=== PATIENT | female | born 1960 | race Caucasian/White ===

== ENCOUNTER → 2016-12-10 | Outpatient (CLI) | payer MEDICARE ==
[~2016-12-10] MED LIST: HYDR-3240; HYDR2TAB13 PO; IBUP800T PO; OXYC-229 PO
[2016-12-10 11:19] LABS: ASPARTATE AMINO TRANSFERASE 19 U/L (15-37); BLOOD UREA NITROGEN 10 mg/dL (7-18)
== END | disposition home or self-care (01) ==
LOC: LAB 10:57
PROVIDERS: ATTEND Physician Assistant
DX: E78.6 Lipoprotein deficiency (principal); F51.05 Insomnia due to other mental disorder; F99 Mental disorder, not otherwise specified
CPT/HCPCS: 36415; 80053; 80061; 84439; 84443; 85025

== ENCOUNTER 2017-04-17 14:03 | Emergency (ER) | payer MEDICARE ==
[~2017-04-17] VITALS: Ht 165.1 cm; Wt 76.5 kg
[~2017-04-17 14:03] MED LIST changes: -HYDR2TAB13 PO; +HYDR2TAB29 PO; +IBUP-1223 PO; -IBUP800T PO; -OXYC-229 PO; +OXYC-307 PO
[2017-04-17] MEDS ORDERED: SODIUM CHLORIDE 0.9% 1,000ML IVBOLUS ONE (15:30)
[2017-04-17] MEDS ORDERED: MORPHINE SULFATE 4 MG/ML, 1ML IVPush PRN (15:30)
[2017-04-17] MEDS ORDERED: ONDANSETRON 2MG/ML, 2ML IVP ONE (15:30)
[2017-04-17] MEDS ORDERED: SODIUM CHLORIDE FLUSH 10ML SYR IVF ONE (15:30)
[2017-04-17] MEDS ORDERED: ONDANSETRON 2MG/ML, 2ML ONE (15:34)
[2017-04-17] MEDS ORDERED: MORPHINE SULFATE 4 MG/ML, 1ML ONE (15:34)
[2017-04-17 16:02] LABS: HEMATOCRIT 43.3 % (34.6-47.8); HEMOGLOBIN 14.6 g/dL (11.7-16.4); WHITE BLOOD COUNT 6.1 x10^3/uL (3.4-10)
[2017-04-17 16:13] LABS: BLOOD UREA NITROGEN 16 mg/dL (7-18)
[2017-04-17 16:18] LABS: IS PT STATUS REG ER OR PRE ER? YES
[2017-04-17] MEDS ORDERED: OMNIPAQUE 350 MG/ML, 100ML BOTTLE ONE (17:19)
[2017-04-17 18:13] VITALS: BP 136/68
== END 2017-04-17 18:14 | disposition home or self-care (01) ==
LOC: ED 15:01
DX: R07.89 Other chest pain (principal); J01.00 Acute maxillary sinusitis, unspecified; J01.10 Acute frontal sinusitis, unspecified; K08.89 Other specified disorders of teeth and supporting structures; K21.9 Gastro-esophageal reflux disease without esophagitis; Z90.710 Acquired absence of both cervix and uterus; Z90.49 Acquired absence of other specified parts of digestive tract; Z90.721 Acquired absence of ovaries, unilateral
CPT/HCPCS: 36415; 71010; 71275; 80048; 80329; 82040; 83880; 84484; 85025; 93005; 96361; 96374; 96375; 99285; J2405; J7030; Q9967; G0480

== ENCOUNTER 2017-09-01 10:54 | Emergency (ER) | payer MEDICARE ==
[~2017-09-01] VITALS: Ht 165.1 cm; Wt 73.1 kg
[2017-09-01] MEDS ORDERED: SODIUM CHLORIDE 0.9% 1,000ML IVBOLUS ONE (12:00)
[2017-09-01] MEDS ORDERED: LORazepam 1MG TABLET PO ONE (12:00)
[2017-09-01 12:08] LABS: BASOPHILS # (AUTO) 0.02 x10^3/uL (0-0.1); BASOPHILS % (AUTO) 0 % (0-1); EOSINOPHILS # (AUTO) 0.04 x10^3/uL (0-0.4); EOSINOPHILS % (AUTO) 1 % (1-7); LYMPHOCYTES % (AUTO) 36 % (22-44); MD NO; MEAN CORPUSCULAR HEMOGLOBIN 30.7 pg (27.0-34.8); MEAN CORPUSCULAR HGB CONC 34.2 g/dL (32.4-35.8); MEAN CORPUSCULAR VOLUME 89.7 fL (80-100); MEAN PLATELET VOLUME 8.7 fL (7.4-10.4); MONOCYTES % (AUTO) 10 % (2-9); NEUTROPHILS # (AUTO) 2.69 x10^3/uL (1.8-6.8); NEUTROPHILS % (AUTO) 53 % (42-75); PLATELET COUNT 203 x10^3/uL (130-400); RED BLOOD COUNT 5.39 x10^6/uL (3.82-5.3); RED CELL DISTRIBUTION WIDTH 13.8 % (9.6-15.2)
[2017-09-01] MEDS ORDERED: LORazepam 2 MG/ML, 1ML ONE (12:08)
[2017-09-01] MEDS ORDERED: LORazepam 1MG TABLET ONE (12:13)
[2017-09-01 12:21] LABS: ALBUMIN 3.7 g/dL (3.4-5.0); ANION GAP 11 mmol/L (5-15); CALCIUM 9.5 mg/dL (8.5-10.1); CHLORIDE 110 mmol/L (98-107); CREATININE 0.92 mg/dL (0.55-1.02)
[2017-09-01 13:01] VITALS: BP 139/89
== END 2017-09-01 13:03 | disposition home or self-care (01) ==
LOC: ED 12:19
DX: A08.4 Viral intestinal infection, unspecified (principal); K21.9 Gastro-esophageal reflux disease without esophagitis
CPT/HCPCS: 36415; 71046; 80048; 82040; 85025; 96360; 99285; J7030

== ENCOUNTER → 2017-09-13 | Outpatient (CLI) | payer MEDICARE ==
[2017-09-13 10:11] LABS: BASOPHILS # (AUTO) 0.04 x10^3/uL (0-0.1); BASOPHILS % (AUTO) 1 % (0-1); EOSINOPHILS # (AUTO) 0.13 x10^3/uL (0-0.4); EOSINOPHILS % (AUTO) 2 % (1-7); LYMPHOCYTES # (AUTO) 2.25 x10^3/uL (1-3.4); LYMPHOCYTES % (AUTO) 36 % (22-44); MD NO; MEAN CORPUSCULAR HEMOGLOBIN 30.7 pg (27.0-34.8); MEAN CORPUSCULAR HGB CONC 34.1 g/dL (32.4-35.8); MEAN CORPUSCULAR VOLUME 90.1 fL (80-100); MEAN PLATELET VOLUME 8.8 fL (7.4-10.4); MONOCYTES # (AUTO) 0.62 x10^3/uL (0.2-0.8); MONOCYTES % (AUTO) 10 % (2-9); NEUTROPHILS # (AUTO) 3.27 x10^3/uL (1.8-6.8); NEUTROPHILS % (AUTO) 52 % (42-75); PLATELET COUNT 224 x10^3/uL (130-400); RED BLOOD COUNT 4.71 x10^6/uL (3.82-5.3); RED CELL DISTRIBUTION WIDTH 13.9 % (9.6-15.2)
[2017-09-13 10:21] LABS: ALANINE AMINOTRANSFERASE 24 U/L (12-78); ALBUMIN 3.8 g/dL (3.4-5.0); ANION GAP 12 mmol/L (5-15); CALCIUM 8.8 mg/dL (8.5-10.1); CHLORIDE 112 mmol/L (98-107); CHOLESTEROL, TOTAL 210 mg/dL (140-239); CREATININE 0.78 mg/dL (0.55-1.02)
[2017-09-13 10:37] LABS: ALKALINE PHOSPHATASE 81 U/L (45-117); BILIRUBIN,TOTAL 0.5 mg/dL (0.2-1.0); TOTAL PROTEIN 7.7 g/dL (6.4-8.2); TRIGLYCERIDES 149 mg/dL (50-200)
[2017-09-13 10:38] LABS: CHOL/HDL RATIO 4.4; HDL CHOL % 23 % (28-40); HDL CHOLESTEROL (DIRECT) 48 mg/dL (40-60); LDL CHOLESTEROL,CALCULATED 132 mg/dL (54-169); LDL/HDL RATIO 2.8 (0.5-3.0); VLDL CHOLESTEROL 30 mg/dL (0-25)
== END | disposition home or self-care (01) ==
LOC: LAB 09:52
PROVIDERS: ATTEND Physician Assistant
DX: Z13.220 Encounter for screening for lipoid disorders (principal); I10 Essential (primary) hypertension; F41.9 Anxiety disorder, unspecified
CPT/HCPCS: 36415; 80053; 80061; 82043; 82570; 84443; 85025

== ENCOUNTER 2017-10-13 19:58 | Emergency (ER) | payer MEDICARE ==
[~2017-10-13] VITALS: Ht 165.1 cm; Wt 74.0 kg
[2017-10-13] MEDS ORDERED: PROPOFOL 10 MG/ML, 20ML ONE (20:21)
[2017-10-13] MEDS ORDERED: PROPOFOL 10 MG/ML, 20ML IVPush ONE (20:30)
[2017-10-13 22:15] VITALS: BP 135/78
== END 2017-10-13 23:04 | disposition home or self-care (01) ==
LOC: ED 21:55
DX: S83.105A Unspecified dislocation of left knee, initial encounter (principal); K21.9 Gastro-esophageal reflux disease without esophagitis; Z90.49 Acquired absence of other specified parts of digestive tract; Z90.710 Acquired absence of both cervix and uterus; Z90.721 Acquired absence of ovaries, unilateral; X58.XXXA Exposure to other specified factors, initial encounter; Y93.89 Activity, other specified; Y92.89 Other specified places as the place of occurrence of the external cause; Y99.9 Unspecified external cause status
CPT/HCPCS: 27550; 99152; 99285

== ENCOUNTER → 2018-01-14 | Outpatient (CLI) | payer MEDICARE ==
[~2018-01-14] MED LIST changes: +CEPH-368 PO; +DIAZ5TAB4 PO; +METH4TAB2 PO; +MULT-726 PO; +OXYC5CAP2 PO
[2018-01-14 10:03] LABS: BASOPHILS # (AUTO) 0.03 x10^3/uL (0-0.1); BASOPHILS % (AUTO) 1 % (0-1); EOSINOPHILS % (AUTO) 2 % (1-7); LYMPHOCYTES % (AUTO) 40 % (22-44); MD NO; MEAN CORPUSCULAR HEMOGLOBIN 30.9 pg (27.0-34.8); MEAN CORPUSCULAR VOLUME 90.9 fL (80-100); MEAN PLATELET VOLUME 9.2 fL (7.4-10.4); MONOCYTES # (AUTO) 0.55 x10^3/uL (0.2-0.8); MONOCYTES % (AUTO) 10 % (2-9); NEUTROPHILS # (AUTO) 2.78 x10^3/uL (1.8-6.8); NEUTROPHILS % (AUTO) 48 % (42-75); PLATELET COUNT 189 x10^3/uL (130-400); RED BLOOD COUNT 4.55 x10^6/uL (3.82-5.3); RED CELL DISTRIBUTION WIDTH 13.9 % (9.6-15.2)
[2018-01-14 10:08] LABS: HCT (SEDRATE) 41.4 % (34.6-47.8)
[2018-01-14 10:08] LABS: MICROSCOPIC NOT IND
[2018-01-14 10:09] LABS: INTERNATIONAL NORMALIZED RATIO 0.96 (0.93-1.1); PROTHROMBIN TIME 9.9 Seconds (9.6-11.5)
[2018-01-14 10:17] LABS: ALBUMIN 3.7 g/dL (3.4-5.0); ANION GAP 6 mmol/L (5-15); CALCIUM 9.2 mg/dL (8.5-10.1); CHLORIDE 108 mmol/L (98-107)
[2018-01-14 10:20] LABS: ALANINE AMINOTRANSFERASE 24 U/L (12-78); ALKALINE PHOSPHATASE 109 U/L (45-117); BILIRUBIN,TOTAL 0.5 mg/dL (0.2-1.0); CREATININE 1.02 mg/dL (0.55-1.02); TOTAL PROTEIN 7.6 g/dL (6.4-8.2)
== END | disposition home or self-care (01) ==
LOC: STAR 08:51
PROVIDERS: ATTEND Orthopaedic Surgery Orthopaedic Surgery of the Spine
DX: Z01.818 Encounter for other preprocedural examination (principal); M43.26 Fusion of spine, lumbar region
CPT/HCPCS: 36415; 71046; 80053; 81003; 85025; 85610; 85651; 85730; 93005

== ENCOUNTER 2018-01-21 05:34 | Inpatient (IN) | payer MEDICARE ==
[~2018-01-21] VITALS: Ht 165.1 cm; Wt 83.1 kg
[~2018-01-21 05:34] MED LIST changes: -CEPH-368 PO; -DIAZ5TAB4 PO; -METH4TAB2 PO; -OXYC5CAP2 PO
[2018-01-21 06:08] VITALS: BP 143/96
[2018-01-21] MEDS ORDERED: LACTATED RINGERS 1,000 ML IV SCH (06:15)
[2018-01-21] MEDS ORDERED: LIDOCAINE-MPF 1%, 2ML ONE (06:19)
[2018-01-21] MEDS ORDERED: LIDOCAINE-MPF 1%, 2ML INFIL ONE (06:30)
[2018-01-21] MEDS ORDERED: TRANEXAMIC ACID 100 MG/ML, 10ML ONE ×2 (07:09)
[2018-01-21] MEDS ORDERED: BUPIVACAINE/PF 0.25% ONE (07:09)
[2018-01-21] MEDS ORDERED: EPINEPHRINE 1 MG/ML, 1ML ONE (07:10)
[2018-01-21] MEDS ORDERED: VANCOMYCIN 1,000 MG ONE (07:10)
[2018-01-21] MEDS ORDERED: THROMBIN 20,000 UNIT VIAL TP ONE (07:10)
[2018-01-21] MEDS ORDERED: PROPOFOL 50 ML ONE ×5 (07:12→10:46)
[2018-01-21] MEDS ORDERED: MIDAZOLAM 1 MG/ML, 2ML ONE ×2 (07:12→12:39)
[2018-01-21] MEDS ORDERED: FENTANYL PF 100 MCG/2ML ONE ×2 (07:12→12:13)
[2018-01-21] MEDS ORDERED: OXYcodone IR 5MG TABLET PO ONE (07:30)
[2018-01-21] MEDS ORDERED: SCOPOLAMINE PATCH, 1.5MG PATCH.TD72 TD ONE (07:30)
[2018-01-21] MEDS ORDERED: FAMOTIDINE 20 MG TABLET PO ONE (07:30)
[2018-01-21] MEDS ORDERED: DIAZEPAM 5 MG TABLET PO ONE (07:30)
[2018-01-21] MEDS ORDERED: GABAPENTIN 300 MG CAPSULE PO ONE (07:30)
[2018-01-21] MEDS ORDERED: ACETAMINOPHEN 500 MG TABLET PO ONE (07:30)
[2018-01-21] MEDS ORDERED: ONDANSETRON ODT 8 MG PO ONE (07:30)
[2018-01-21] MEDS ORDERED: BACITRACIN 50,000 UNIT ONE (07:32)
[2018-01-21] MEDS ORDERED: FENTANYL PF 250 MCG/5ML ONE (07:53)
[2018-01-21] MEDS ORDERED: HYDROmorphone 1 MG/ML, 1ML IV PRN (08:00)
[2018-01-21] MEDS ORDERED: hydrALAzine 20 MG/ML, 1ML IV PRN (08:00)
[2018-01-21] MEDS ORDERED: MIDAZOLAM 1 MG/ML, 2ML IV PRN (08:00)
[2018-01-21] MEDS ORDERED: HYDROcodone/APAP 7.5-325MG/15ML UDC PO PRN (08:00)
[2018-01-21] MEDS ORDERED: MEPERIDINE/PF 25MG/0.5ML IVPush PRN (08:00)
[2018-01-21] MEDS ORDERED: ALBUTEROL SULFATE 2.5 MG/3 ML NPPB PRN (08:00)
[2018-01-21] MEDS ORDERED: ONDANSETRON ODT 8 MG PO PRN (08:00)
[2018-01-21] MEDS ORDERED: OXYcodone 5 MG/5 ML ORAL.SOL UDC PO PRN (08:00)
[2018-01-21] MEDS ORDERED: PROMETHAZINE 25 MG/ML, 1ML IV PRN (08:00)
[2018-01-21] MEDS ORDERED: EPHEDRINE 50 MG/ML, 1ML IVPush PRN (08:00)
[2018-01-21] MEDS ORDERED: ALBUTEROL/IPRATROPIUM 2.5MG/0.5MG, 3 ML NPPB PRN (08:00)
[2018-01-21] MEDS ORDERED: DIAZEPAM 5 MG/ML, 2ML IVPush PRN (08:00)
[2018-01-21] MEDS ORDERED: LABETALOL 5MG/ML, 20ML IV PRN ×2 (08:00→14:00)
[2018-01-21] MEDS ORDERED: BUPIVACAINE/PF 0.25% INFIL ONE (08:19)
[2018-01-21] MEDS ORDERED: CEFAZOLIN 1,000 MG ONE (10:59)
[2018-01-21] MEDS ORDERED: SUCCINYLCHOLINE 20 MG/ML, 10ML ONE (10:59)
[2018-01-21] MEDS ORDERED: DEXAMETHASONE 4 MG/ML, 1ML ONE (10:59)
[2018-01-21] MEDS ORDERED: PROPOFOL 10 MG/ML, 20ML ONE (10:59)
[2018-01-21] MEDS ORDERED: OXYcodone 5 MG/5 ML ORAL.SOL UDC ONE (12:13)
[2018-01-21] MEDS: FENTANYL PF 100 MCG/2ML IV PRN ×2 (12:19→12:35)
[2018-01-21] MEDS ORDERED: KETOROLAC 30 MG/1 ML IM PRN (14:00)
[2018-01-21] MEDS ORDERED: DIPHENHYDRAMINE 50 MG/ML, 1ML IM PRN (14:00)
[2018-01-21] MEDS ORDERED: KETOROLAC 30 MG/1 ML IV ONE (14:00)
[2018-01-21] MEDS ORDERED: LORazepam 1MG TABLET PO PRN (14:00)
[2018-01-21] MEDS ORDERED: ACETAMINOPHEN 650 MG SUPP PR PRN ×3 (14:00→15:00)
[2018-01-21] MEDS ORDERED: PROMETHAZINE 25 MG/ML, 1ML IM PRN (14:00)
[2018-01-21] MEDS ORDERED: DIPHENHYDRAMINE 50 MG/ML, 1ML IVPush PRN (14:00)
[2018-01-21] MEDS ORDERED: ONDANSETRON 2MG/ML, 2ML IV PRN (14:00)
[2018-01-21] MEDS ORDERED: ACETAMINOPHEN 325 MG TABLET PO PRN ×3 (14:00→15:00)
[2018-01-21] MEDS ORDERED: MAGNESIUM HYDROXIDE 8%, 30ML UDC PO PRN (14:00)
[2018-01-21] MEDS: LABETALOL 5MG/ML, 20ML IV SCH ×2 (14:00→22:39)
[2018-01-21] MEDS ORDERED: DIPHENHYDRAMINE 50 MG CAPSULE PO PRN (14:00)
[2018-01-21] MEDS ORDERED: DIAZEPAM 5 MG TABLET PO PRN (14:00)
[2018-01-21 14:30] VITALS: BP 112/62
[2018-01-21] MEDS ORDERED: SODIUM CHLORIDE 0.9% 1,000 ML IV PRN (14:30)
[2018-01-21] MEDS ORDERED: OXYcodone IR 5MG TABLET PO PRN (14:30)
[2018-01-21] MEDS: KETOROLAC 30 MG/1 ML IVPush SCH ×2 (15:26→22:46)
[2018-01-21] MEDS: CEFAZOLIN PMX 1GM/50ML 50 ML IVPB SCH ×2 (15:32→22:33)
[2018-01-21] MEDS: IBUPROFEN 800 MG TABLET PO SCH ×2 (16:00→20:36)
[2018-01-21] MEDS: D5%-0.9% NACL+KCL 20MEQ 1,000 ML IV SCH (18:37)
[2018-01-21 19:46] VITALS: BP 132/67
[2018-01-21] MEDS ORDERED: ZOLPIDEM 5MG TABLET PO PRN (21:00)
[2018-01-21 22:37] VITALS: BP 118/70
[2018-01-21 23:49] VITALS: BP 93/62
[2018-01-22 02:28] VITALS: BP 100/62
[2018-01-22 05:12] LABS: BASOPHILS # (AUTO) 0.03 x10^3/uL (0-0.1); BASOPHILS % (AUTO) 0 % (0-1); EOSINOPHILS # (AUTO) 0.01 x10^3/uL (0-0.4); EOSINOPHILS % (AUTO) 0 % (1-7); LYMPHOCYTES # (AUTO) 1.52 x10^3/uL (1-3.4); LYMPHOCYTES % (AUTO) 19 % (22-44); MD NO; MEAN CORPUSCULAR HEMOGLOBIN 31.2 pg (27.0-34.8); MEAN CORPUSCULAR HGB CONC 34.4 g/dL (32.4-35.8); MEAN CORPUSCULAR VOLUME 90.8 fL (80-100); MEAN PLATELET VOLUME 9.6 fL (7.4-10.4); MONOCYTES # (AUTO) 0.71 x10^3/uL (0.2-0.8); MONOCYTES % (AUTO) 9 % (2-9); NEUTROPHILS # (AUTO) 5.89 x10^3/uL (1.8-6.8); NEUTROPHILS % (AUTO) 72 % (42-75); PLATELET COUNT 144 x10^3/uL (130-400); RED BLOOD COUNT 3.53 x10^6/uL (3.82-5.3); RED CELL DISTRIBUTION WIDTH 13.8 % (9.6-15.2)
[2018-01-22] MEDS: KETOROLAC 30 MG/1 ML IVPush SCH ×3 (05:25→22:21)
[2018-01-22] MEDS: D5%-0.9% NACL+KCL 20MEQ 1,000 ML IV SCH ×2 (05:25→15:44)
[2018-01-22] MEDS: LABETALOL 5MG/ML, 20ML IV SCH ×3 (06:32→22:00)
[2018-01-22 07:17] VITALS: BP 97/60
[2018-01-22] MEDS: IBUPROFEN 800 MG TABLET PO SCH ×4 (08:51→21:07)
[2018-01-22] MEDS: SENNA/DOCUSATE TABLET PO SCH (08:55)
[2018-01-22] MEDS: MULTIVITAMINS/MINERALS TABLET PO SCH (08:55)
[2018-01-22] MEDS: DEXAMETHASONE 4 MG/ML, 1ML IVPush PRN (13:34)
[2018-01-22 15:25] VITALS: BP 98/61
[2018-01-22 20:03] VITALS: BP 126/72
[2018-01-23 01:18] VITALS: BP 123/55
[2018-01-23] MEDS: D5%-0.9% NACL+KCL 20MEQ 1,000 ML IV SCH ×3 (01:55→23:00)
[2018-01-23] MEDS: OXYcodone IR 5MG TABLET PO PRN ×5 (04:46→20:28)
[2018-01-23 05:06] LABS: BASOPHILS # (AUTO) 0.02 x10^3/uL (0-0.1); BASOPHILS % (AUTO) 0 % (0-1); EOSINOPHILS # (AUTO) 0.01 x10^3/uL (0-0.4); EOSINOPHILS % (AUTO) 0 % (1-7); LYMPHOCYTES # (AUTO) 0.99 x10^3/uL (1-3.4); LYMPHOCYTES % (AUTO) 13 % (22-44); MD NO; MEAN CORPUSCULAR HEMOGLOBIN 30.3 pg (27.0-34.8); MEAN CORPUSCULAR HGB CONC 33.4 g/dL (32.4-35.8); MEAN CORPUSCULAR VOLUME 90.9 fL (80-100); MEAN PLATELET VOLUME 9.7 fL (7.4-10.4); MONOCYTES # (AUTO) 0.68 x10^3/uL (0.2-0.8); MONOCYTES % (AUTO) 9 % (2-9); NEUTROPHILS # (AUTO) 5.85 x10^3/uL (1.8-6.8); NEUTROPHILS % (AUTO) 78 % (42-75); PLATELET COUNT 116 x10^3/uL (130-400); RED BLOOD COUNT 3.09 x10^6/uL (3.82-5.3)
[2018-01-23] MEDS: LABETALOL 5MG/ML, 20ML IV SCH ×4 (06:00→23:13)
[2018-01-23 07:12] VITALS: BP 155/90
[2018-01-23] MEDS: MULTIVITAMINS/MINERALS TABLET PO SCH (08:49)
[2018-01-23] MEDS: SENNA/DOCUSATE TABLET PO SCH (08:49)
[2018-01-23] MEDS: KETOROLAC 30 MG/1 ML IVPush SCH (08:49)
[2018-01-23] MEDS: IBUPROFEN 800 MG TABLET PO SCH ×3 (08:49→20:28)
[2018-01-23] MEDS: DEXAMETHASONE 4 MG/ML, 1ML IVPush PRN ×2 (10:14→16:59)
[2018-01-23] MEDS: morphine SULFATE 10 MG/ML, 1ML IV PRN ×4 (10:14→18:50)
[2018-01-23 11:48] VITALS: BP 155/89
[2018-01-23 18:45] VITALS: BP 130/97
[2018-01-24] MEDS: OXYcodone IR 5MG TABLET PO PRN ×6 (01:09→22:34)
[2018-01-24 02:37] VITALS: BP 125/78
[2018-01-24] MEDS: BISACODYL 10 MG SUPP PR PRN (04:54)
[2018-01-24 05:11] LABS: BASOPHILS # (AUTO) 0.01 x10^3/uL (0-0.1); BASOPHILS % (AUTO) 0 % (0-1); EOSINOPHILS % (AUTO) 0 % (1-7); LYMPHOCYTES # (AUTO) 0.88 x10^3/uL (1-3.4); LYMPHOCYTES % (AUTO) 10 % (22-44); MD NO; MEAN CORPUSCULAR HEMOGLOBIN 31.2 pg (27.0-34.8); MEAN CORPUSCULAR HGB CONC 34.1 g/dL (32.4-35.8); MEAN CORPUSCULAR VOLUME 91.3 fL (80-100); MEAN PLATELET VOLUME 9.6 fL (7.4-10.4); MONOCYTES % (AUTO) 9 % (2-9); NEUTROPHILS # (AUTO) 6.97 x10^3/uL (1.8-6.8); NEUTROPHILS % (AUTO) 81 % (42-75); PLATELET COUNT 146 x10^3/uL (130-400); RED BLOOD COUNT 3.29 x10^6/uL (3.82-5.3); RED CELL DISTRIBUTION WIDTH 13.7 % (9.6-15.2)
[2018-01-24 07:08] VITALS: BP 157/84
[2018-01-24] MEDS: MULTIVITAMINS/MINERALS TABLET PO SCH (08:32)
[2018-01-24] MEDS: IBUPROFEN 800 MG TABLET PO SCH ×3 (08:33→22:33)
[2018-01-24] MEDS: SENNA/DOCUSATE TABLET PO SCH (08:33)
[2018-01-24] MEDS: D5%-0.9% NACL+KCL 20MEQ 1,000 ML IV SCH ×2 (08:43→09:59)
[2018-01-24] MEDS: LABETALOL 5MG/ML, 20ML IV SCH ×2 (09:58→22:00)
[2018-01-24] MEDS ORDERED: POLYETHYLENE GLYCOL 17 GM PACKET ONE (10:11)
[2018-01-24] MEDS: DEXAMETHASONE 4 MG/ML, 1ML IVPush PRN ×2 (10:15→16:13)
[2018-01-24] MEDS: POLYETHYLENE GLYCOL 17 GM PACKET PO SCH (10:15)
[2018-01-24 12:37] VITALS: BP 116/67
[2018-01-24 20:06] VITALS: BP 154/83
[2018-01-25 02:29] VITALS: BP 143/71
[2018-01-25] MEDS: D5%-0.9% NACL+KCL 20MEQ 1,000 ML IV SCH ×3 (02:43→22:39)
[2018-01-25] MEDS: OXYcodone IR 5MG TABLET PO PRN ×6 (02:43→22:47)
[2018-01-25 05:16] LABS: BASOPHILS # (AUTO) 0.01 x10^3/uL (0-0.1); BASOPHILS % (AUTO) 0 % (0-1); EOSINOPHILS % (AUTO) 0 % (1-7); LYMPHOCYTES # (AUTO) 1.26 x10^3/uL (1-3.4); LYMPHOCYTES % (AUTO) 17 % (22-44); MD NO; MEAN CORPUSCULAR HEMOGLOBIN 30.4 pg (27.0-34.8); MEAN CORPUSCULAR HGB CONC 33.4 g/dL (32.4-35.8); MEAN PLATELET VOLUME 9.4 fL (7.4-10.4); MONOCYTES # (AUTO) 0.66 x10^3/uL (0.2-0.8); MONOCYTES % (AUTO) 9 % (2-9); NEUTROPHILS # (AUTO) 5.51 x10^3/uL (1.8-6.8); NEUTROPHILS % (AUTO) 74 % (42-75); PLATELET COUNT 172 x10^3/uL (130-400); RED BLOOD COUNT 3.27 x10^6/uL (3.82-5.3); RED CELL DISTRIBUTION WIDTH 13.8 % (9.6-15.2)
[2018-01-25] MEDS: LABETALOL 5MG/ML, 20ML IV SCH ×3 (06:00→19:58)
[2018-01-25 07:31] VITALS: BP 134/76
[2018-01-25] MEDS: POLYETHYLENE GLYCOL 17 GM PACKET PO SCH (09:00)
[2018-01-25] MEDS: SENNA/DOCUSATE TABLET PO SCH (09:45)
[2018-01-25] MEDS: MULTIVITAMINS/MINERALS TABLET PO SCH (09:45)
[2018-01-25] MEDS: IBUPROFEN 800 MG TABLET PO SCH ×3 (09:46→21:06)
[2018-01-25] MEDS: BISACODYL 10 MG SUPP PR PRN (09:46)
[2018-01-25 12:56] VITALS: BP 144/77
[2018-01-25 19:50] VITALS: BP 146/83
[2018-01-25] MEDS: morphine SULFATE 10 MG/ML, 1ML IV PRN (21:06)
[2018-01-26] MEDS: OXYcodone IR 5MG TABLET PO PRN ×4 (01:55→13:16)
[2018-01-26 02:08] VITALS: BP 115/68
[2018-01-26 05:34] LABS: MEAN CORPUSCULAR HEMOGLOBIN 30.6 pg (27.0-34.8); MEAN CORPUSCULAR HGB CONC 33.5 g/dL (32.4-35.8); MEAN CORPUSCULAR VOLUME 91.4 fL (80-100); MEAN PLATELET VOLUME 8.9 fL (7.4-10.4); PLATELET COUNT 213 x10^3/uL (130-400); RED BLOOD COUNT 3.33 x10^6/uL (3.82-5.3)
[2018-01-26] MEDS: morphine SULFATE 10 MG/ML, 1ML IV PRN (05:44)
[2018-01-26] MEDS: LABETALOL 5MG/ML, 20ML IV SCH (06:00)
[2018-01-26 06:01] LABS: BASOPHILS # (AUTO) 0.02 x10^3/uL (0-0.1); BASOPHILS % (AUTO) 0 % (0-1); EOSINOPHILS # (AUTO) 0.18 x10^3/uL (0-0.4); EOSINOPHILS % (AUTO) 3 % (1-7); LYMPHOCYTES # (AUTO) 3.06 x10^3/uL (1-3.4); LYMPHOCYTES % (AUTO) 47 % (22-44); MD SCAN; MONOCYTES # (AUTO) 0.66 x10^3/uL (0.2-0.8); MONOCYTES % (AUTO) 10 % (2-9); NEUTROPHILS # (AUTO) 2.55 x10^3/uL (1.8-6.8); NEUTROPHILS % (AUTO) 39 % (42-75)
[2018-01-26 07:17] VITALS: BP 143/92
[2018-01-26] MEDS: MULTIVITAMINS/MINERALS TABLET PO SCH (08:16)
[2018-01-26] MEDS: IBUPROFEN 800 MG TABLET PO SCH (08:16)
[2018-01-26] MEDS: SENNA/DOCUSATE TABLET PO SCH (08:16)
[2018-01-26] MEDS: POLYETHYLENE GLYCOL 17 GM PACKET PO SCH (08:17)
[2018-01-26] MEDS: DEXAMETHASONE 4 MG/ML, 1ML IVPush PRN ×2 (08:48→15:24)
[2018-01-26] MEDS: DIAZEPAM 5 MG/ML, 2ML IV PRN ×2 (08:50→15:59)
[2018-01-26 12:20] VITALS: BP 160/80
[2018-01-26] MEDS ORDERED: DIAZ5TAB4 PO (16:23)
[2018-01-26] MEDS ORDERED: OXYC5CAP2 PO (16:23)
[2018-01-26] MEDS ORDERED: CEPH-368 PO (16:24)
[2018-01-26] MEDS ORDERED: METH4TAB2 PO (16:25)
== END 2018-01-26 16:33 | disposition home health service (06) | DRG 460 ==
LOC: ORIP 05:34 → 4NOR 13:12 → DCLOUNGE 01-26 16:19
PROVIDERS: ADMIT Orthopaedic Surgery Orthopaedic Surgery of the Spine; ATTEND Orthopaedic Surgery Orthopaedic Surgery of the Spine
PROC: 07DR3ZZ Extraction of Iliac Bone Marrow, Percutaneous Approach (ICD-10-PCS; 2018-01-21)
PROC: BR161ZZ Fluoroscopy of Lumbar Facet Joint(s) using Low Osmolar Contrast (ICD-10-PCS; 2018-01-21)
PROC: 4A11X4G Monitoring of Peripheral Nervous Electrical Activity, Intraoperative, External Approach (ICD-10-PCS; 2018-01-21)
PROC: 0SG10AJ Fusion of 2 or more Lumbar Vertebral Joints with Interbody Fusion Device, Posterior Approach, Anterior Column, Open Approach (ICD-10-PCS; principal; 2018-01-21 07:30)
DX: M48.061 Spinal stenosis, lumbar region without neurogenic claudication (principal); M43.16 Spondylolisthesis, lumbar region; M51.17 Intervertebral disc disorders with radiculopathy, lumbosacral region; M51.16 Intervertebral disc disorders with radiculopathy, lumbar region
CPT/HCPCS: 36415; 72100; 85025; 86850; 86900; C1713; J0171; J0690; J1100; J1885; J2250; J2270; J2405; J2704; J3010; J3360; J3370; J3490; Q0162; C1760; C1762; C1763; C9362; J0330; J3480; J7120

== ENCOUNTER 2018-05-14 18:05 | Emergency (ER) | payer MEDICARE ==
[~2018-05-14] VITALS: Ht 165.1 cm; Wt 75.0 kg
[~2018-05-14 18:05] MED LIST changes: +CEPH-368 PO; +DIAZ5TAB4 PO; +METH4TAB2 PO; +OXYC5CAP2 PO
[2018-05-14 18:45] LABS: BASOPHILS # (AUTO) 0.02 x10^3/uL (0-0.1); BASOPHILS % (AUTO) 0 % (0-1); EOSINOPHILS # (AUTO) 0.03 x10^3/uL (0-0.4); EOSINOPHILS % (AUTO) 0 % (1-7); LYMPHOCYTES % (AUTO) 7 % (22-44); MD NO; MEAN CORPUSCULAR HGB CONC 34.1 g/dL (32.4-35.8); MEAN CORPUSCULAR VOLUME 85.3 fL (80-100); MEAN PLATELET VOLUME 9.1 fL (7.4-10.4); MONOCYTES # (AUTO) 0.17 x10^3/uL (0.2-0.8); MONOCYTES % (AUTO) 2 % (2-9); NEUTROPHILS # (AUTO) 7.76 x10^3/uL (1.8-6.8); NEUTROPHILS % (AUTO) 90 % (42-75); PLATELET COUNT 202 x10^3/uL (130-400); RED BLOOD COUNT 5.45 x10^6/uL (3.82-5.3); RED CELL DISTRIBUTION WIDTH 15.5 % (9.6-15.2)
[2018-05-14] MEDS ORDERED: MORPHINE SULFATE 4 MG/ML, 1ML ONE ×2 (18:48→19:07)
[2018-05-14] MEDS ORDERED: FAMOTIDINE 20 MG/2 ML ONE (18:48)
[2018-05-14] MEDS ORDERED: ONDANSETRON ODT 4 MG ONE (18:48)
[2018-05-14] MEDS: MORPHINE SULFATE 4 MG/ML, 1ML IVPush PRN ×2 (18:54→19:09)
[2018-05-14 18:57] LABS: ALANINE AMINOTRANSFERASE 24 U/L (12-78); ANION GAP 10 mmol/L (5-15); CALCIUM 9.7 mg/dL (8.5-10.1); CHLORIDE 111 mmol/L (98-107); CREATININE 0.98 mg/dL (0.55-1.02)
[2018-05-14 18:59] LABS: ALKALINE PHOSPHATASE 92 U/L (45-117); BILIRUBIN,TOTAL 0.5 mg/dL (0.2-1.0); TOTAL PROTEIN 8.7 g/dL (6.4-8.2)
[2018-05-14] MEDS ORDERED: FAMOTIDINE 20 MG/2 ML IVP ONE (19:00)
[2018-05-14] MEDS ORDERED: SODIUM CHLORIDE FLUSH 10ML SYR IVF ONE (19:00)
[2018-05-14] MEDS ORDERED: SODIUM CHLORIDE 0.9% 1,000ML IVBOLUS ONE (19:00)
[2018-05-14] MEDS ORDERED: ONDANSETRON ODT 4 MG PO ONE (19:00)
[2018-05-14] MEDS ORDERED: ONDANSETRON 2MG/ML, 2ML ONE (19:06)
[2018-05-14] MEDS ORDERED: IBUP-1223 PO (19:17)
[2018-05-14] MEDS ORDERED: DIAZ5TAB PO (19:19)
[2018-05-14] MEDS ORDERED: OXYC5TAB3 PO (19:19)
[2018-05-14] MEDS ORDERED: sleep med PO (19:20)
[2018-05-14] MEDS ORDERED: PANT20TA2 PO (19:21)
[2018-05-14] MEDS ORDERED: ONDANSETRON 2MG/ML, 2ML IVPush ONE (19:30)
[2018-05-14 20:39] VITALS: BP 148/85
== END 2018-05-14 20:41 | disposition home or self-care (01) ==
LOC: ED 19:58
DX: F11.23 Opioid dependence with withdrawal (principal); K21.9 Gastro-esophageal reflux disease without esophagitis; M54.9 Dorsalgia, unspecified; R06.02 Shortness of breath; R00.2 Palpitations; M19.90 Unspecified osteoarthritis, unspecified site; Z85.43 Personal history of malignant neoplasm of ovary; Z85.05 Personal history of malignant neoplasm of liver; Z90.49 Acquired absence of other specified parts of digestive tract; Z90.710 Acquired absence of both cervix and uterus
CPT/HCPCS: 36415; 74021; 80053; 83690; 85025; 93005; 96374; 96375; 99285; J2405; J7030; Q0162; S0028

== ENCOUNTER 2018-10-06 22:25 | Emergency (ER) | payer MEDICARE ==
[~2018-10-06] VITALS: Ht 165.1 cm; Wt 71.6 kg
[~2018-10-06 22:25] MED LIST changes: +DIAZ5TAB PO; +OXYC5TAB3 PO; +PANT20TA2 PO; +sleep med PO
[2018-10-06] MEDS ORDERED: METOPROLOL (22:37)
[2018-10-06] MEDS ORDERED: GABA600T7 PO (22:37)
[2018-10-06] MEDS ORDERED: NAPR-856 PO (22:37)
--- NOTE | 2018-10-06 22:42 | NUR ---
pg code neuro [id number]
[2018-10-06 22:43] LABS: BASOPHILS # (AUTO) 0.03 x10^3/uL (0-0.1); BASOPHILS % (AUTO) 1 % (0-1); EOSINOPHILS # (AUTO) 0.05 x10^3/uL (0-0.4); EOSINOPHILS % (AUTO) 1 % (1-7); LYMPHOCYTES # (AUTO) 2.92 x10^3/uL (1-3.4); LYMPHOCYTES % (AUTO) 40 % (22-44); MD NO; MEAN CORPUSCULAR HGB CONC 33.7 g/dL (32.4-35.8); MEAN PLATELET VOLUME 9.1 fL (7.4-10.4); MONOCYTES # (AUTO) 0.56 x10^3/uL (0.2-0.8); MONOCYTES % (AUTO) 8 % (2-9); NEUTROPHILS # (AUTO) 3.69 x10^3/uL (1.8-6.8); NEUTROPHILS % (AUTO) 51 % (42-75); PLATELET COUNT 234 x10^3/uL (130-400); RED BLOOD COUNT 5.33 x10^6/uL (3.82-5.3); RED CELL DISTRIBUTION WIDTH 14.1 % (9.6-15.2)
--- NOTE | 2018-10-06 22:43 | NUR ---
PT TO CT AT THIS TIME
[2018-10-06 22:58] LABS: ALANINE AMINOTRANSFERASE 27 U/L (12-78); ALBUMIN 4.4 g/dL (3.4-5.0); CALCIUM 9.7 mg/dL (8.5-10.1); CREATININE 0.93 mg/dL (0.55-1.02)
[2018-10-06 23:03] LABS: ALKALINE PHOSPHATASE 111 U/L (45-117); ANION GAP 12 mmol/L (5-15); BILIRUBIN,TOTAL 0.4 mg/dL (0.2-1.0); CHLORIDE 107 mmol/L (98-107); TOTAL PROTEIN 8.9 g/dL (6.4-8.2)
--- NOTE | 2018-10-06 23:26 | NUR ---
ASSUMED CARE OF PATIENT. REPORT GIVEN FROM JITENDRA
--- NOTE | 2018-10-07 00:02 | NUR ---
PT REPORTS A HEADACHE AND LOW BACK PAIN. DR NASH AWARE.
--- NOTE | 2018-10-07 00:09 | NUR ---
PT AMBULATED TO BATHROOM. NO ACUTE DISTRESS NOTED. VS STABLE. WILL CONTINUE TO MONITOR.
[2018-10-07 00:32] LABS: BARBITURATE SCREEN, URINE Negative (Negative); BENZODIAZEPINE SCREEN, URINE Negative (Negative)
[2018-10-07 00:38] LABS: AMPHETAMINE SCREEN, URINE Positive (Negative); CANNABINOID SCREEN, URINE Negative (Negative); COCAINE SCREEN, URINE Negative (Negative); METHADONE SCREEN, URINE Negative (Negative); OPIATE SCREEN, URINE Negative (Negative)
[2018-10-07] MEDS ORDERED: KETOROLAC 30 MG/1 ML ONE (00:53)
[2018-10-07] MEDS ORDERED: KETOROLAC 30 MG/1 ML IVPush ONE (01:00)
--- NOTE | 2018-10-07 01:00 | NUR ---
PT RESTING IN ROOM. VS STABLE. MEDICATION COORDINATOR ON NSR NOTED. CALL LIGHT IN PLACE. WILL CONTINUE TO MONITOR.
--- NOTE | 2018-10-07 01:25 | NUR ---
BREAK RN: Pt resting on gurney, UA sent. Pt aware that we are waiting on results, pt on all monitors, VSS.
[2018-10-07 02:00] LABS: MICROSCOPIC NOT IND
[2018-10-07 02:01] LABS: CULTURE INDICATED? NO
--- NOTE | 2018-10-07 02:02 | NUR ---
pt resting in room. no acute distress noted. call light in place. will continue to monitor.
--- NOTE | 2018-10-07 02:16 | NUR ---
DR NASH HAS UPDATED PATIENT. PATIENT TO BE DISCHARGED.
[2018-10-07 02:24] VITALS: BP 145/90
== END 2018-10-07 02:38 | disposition home or self-care (01) ==
LOC: ED 23:59
DX: F15.10 Other stimulant abuse, uncomplicated (principal); G89.29 Other chronic pain; R51 Headache; Z90.49 Acquired absence of other specified parts of digestive tract; Z90.710 Acquired absence of both cervix and uterus
CPT/HCPCS: 36415; 70450; 71045; 80053; 80307; 81003; 82140; 85025; 85610; 93005; 96374; 99284; J1885; 85730

== ENCOUNTER 2019-06-28 16:44 | Emergency (ER) | payer MEDICARE ==
[~2019-06-28] VITALS: Ht 165.1 cm; Wt 88.5 kg
[~2019-06-28 16:44] MED LIST changes: +GABA600T7 PO; +METOPROLOL; +NAPR-856 PO
[2019-06-28] MEDS ORDERED: TRAM50TA2 PO (16:57)
[2019-06-28] MEDS ORDERED: OXYC15TA PO (16:57)
[2019-06-28] MEDS ORDERED: HYDR50TA13 PO (16:57)
[2019-06-28] MEDS ORDERED: NAPR-685 PO (16:57)
--- NOTE | 2019-06-28 17:00 | NUR ---
PT A&OX4, RESP EVEN & UNLABORED, SPEECH CLEAR, SKIN WNL. C/O LOW BACK PAIN RADIATING TO BUTTOCKS, DIARRHEA TODAY: RUNNY, VOMITED PRIOR TO EMS ARRIVAL. 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 DENIES RECENT ANTIBIOTIC USE, ABD PAIN. STATES SHE WAS AT WORK ON WEDNESDAY; TOOK WEDNESDAY OFF DUE TO NOT FEELING WELL. Addendum: 06/28/19 at 1711 by HALINA PT NOTIFIED OF NEED FOR URINE SPECIMEN. STATES SHE CAN'T WALK OR MOVE RIGHT NOW DUE TO BACK PAIN.
--- NOTE | 2019-06-28 17:02 | NUR ---
DR SOLOMON BS FOR EXAM. PT NOW STATES SHE HAS THE FLU, VOMITED X 3 TODAY, DIARRHEA X 10 TODAY.
--- NOTE | 2019-06-28 17:10 | NUR ---
EMS NS 1 LITER BAML INFUSED BY ARRIVAL TO ED. INFUSION CONTINUED PER VO: DR SOLOMON
--- NOTE | 2019-06-28 17:27 | NUR ---
PT REPORT TO BREAK RN: JOSE. PT CARE TRANSFERRED.
[2019-06-28] MEDS ORDERED: SODIUM CHLORIDE 0.9% 1,000ML IVBOLUS ONE (17:30)
[2019-06-28] MEDS ORDERED: PROCHLORPERAZINE 5 MG/ML, 2ML IVPush ONE (17:30)
[2019-06-28] MEDS ORDERED: SODIUM CHLORIDE FLUSH 10ML SYR IVF ONE (17:30)
[2019-06-28 17:36] LABS: BASOPHILS % (AUTO) 0 % (0-1); EOSINOPHILS # (AUTO) 0.04 x10^3/uL (0-0.4); EOSINOPHILS % (AUTO) 0 % (1-7); LYMPHOCYTES % (AUTO) 7 % (22-44); MD NO; MEAN CORPUSCULAR HGB CONC 33.3 g/dL (32.4-35.8); MEAN CORPUSCULAR VOLUME 92.9 fL (80-100); MEAN PLATELET VOLUME 8.9 fL (7.4-10.4); MONOCYTES # (AUTO) 0.21 x10^3/uL (0.2-0.8); MONOCYTES % (AUTO) 2 % (2-9); NEUTROPHILS # (AUTO) 8.36 x10^3/uL (1.8-6.8); NEUTROPHILS % (AUTO) 91 % (42-75); PLATELET COUNT 193 x10^3/uL (130-400); RED BLOOD COUNT 4.47 x10^6/uL (3.82-5.3); RED CELL DISTRIBUTION WIDTH 13.8 % (9.6-15.2)
[2019-06-28 17:46] LABS: ALANINE AMINOTRANSFERASE 26 U/L (12-78); ALBUMIN 3.5 g/dL (3.4-5.0); ANION GAP 4 mmol/L (5-15); CALCIUM 8.1 mg/dL (8.5-10.1); CHLORIDE 116 mmol/L (98-107); CREATININE 0.88 mg/dL (0.55-1.02)
[2019-06-28 17:49] LABS: ALKALINE PHOSPHATASE 75 U/L (45-117); BILIRUBIN,TOTAL 0.5 mg/dL (0.2-1.0); TOTAL PROTEIN 6.8 g/dL (6.4-8.2)
--- NOTE | 2019-06-28 18:08 | NUR ---
PT REPORT FROM BREAK RN: TAYO. PT CARE TO BE ASSUMED.
--- NOTE | 2019-06-28 18:15 | NUR ---
EMS LITER NS INFUSED. PT'S SPOUSE IN ROOM. REMINDED PT OF NEED FOR URINE SPECIMEN.
--- NOTE | 2019-06-28 18:24 | NUR ---
PT TO [facility] PER YOANNA. ABLE TO WALK INTO & OUT OF BR W/OUT ASSIST. VOIDED URINE SPECIMEN PROVIDE: PALE YELLOW, CLEAR. PT RETURNED TO ROOM PER YOANNA. IV ASSESSED: PATENT. MONITORING EQUIPMENT REAPPLIED. SIDE RAILS UP X2, CALL LIGHT W/IN REACH, SPOUSE IN ROOM.
[2019-06-28 18:27] VITALS: BP 133/80
[2019-06-28 18:50] LABS: CULTURE INDICATED? NO; MICROSCOPIC NOT IND
--- NOTE | 2019-06-28 19:06 | NUR ---
TASK RN: Patient given discharge instructions and they have confirmed that they understand the instructions. Patient ambulatory with steady gait.
== END 2019-06-28 19:09 | disposition home or self-care (01) ==
LOC: ED 19:00
DX: A08.4 Viral intestinal infection, unspecified (principal); G89.29 Other chronic pain; M54.5 Low back pain; K21.9 Gastro-esophageal reflux disease without esophagitis
CPT/HCPCS: 36415; 80053; 81003; 83690; 85025; 99283

== ENCOUNTER → 2020-09-09 | Outpatient (CLI) | payer MEDICARE ==
[~2020-09-09] MED LIST changes: +AMOX1TAB64 PO; +HYDR-1067; -HYDR-3240; +HYDR50TA99 PO; +METO25TA35 PO; +NAPR-685 PO; +OMEP-110 PO; -OXYC-307 PO; +OXYC-380 PO; +OXYC15TA3 PO; -OXYC5TAB3 PO; +OXYC5TAB98 PO; +TRAM50TA2 PO
== END | disposition home or self-care (01) ==
LOC: RAD 12:31
PROVIDERS: ATTEND Specialist
DX: M54.5 Low back pain (principal)
CPT/HCPCS: 72110

== ENCOUNTER → 2020-10-22 | Outpatient (CLI) | payer MEDICARE | END | disposition home or self-care (01) | LOC: RAD 13:25 | PROVIDERS: ATTEND Specialist | DX: M16.0 Bilateral primary osteoarthritis of hip (principal); M43.26 Fusion of spine, lumbar region | CPT/HCPCS: 73523 ==